=== PATIENT | female | born 1940 | race Caucasian/White ===

== ENCOUNTER → 2016-12-16 | Outpatient (CLI) | payer MEDICARE, OTHER | END | disposition home or self-care (01) | LOC: CFH 16:34 | PROVIDERS: ATTEND Physician Assistant | DX: S52.571A Other intraarticular fracture of lower end of right radius, initial encounter for closed fracture (principal); M18.11 Unilateral primary osteoarthritis of first carpometacarpal joint, right hand; M11.241 Other chondrocalcinosis, right hand; M85.641 Other cyst of bone, right hand; X58.XXXA Exposure to other specified factors, initial encounter; Y93.89 Activity, other specified; Y92.89 Other specified places as the place of occurrence of the external cause; Y99.8 Other external cause status ==